=== PATIENT | male | born 1980 | race Two or more races ===

== ENCOUNTER 2024-06-12 20:52 | Observation (INO) | payer BC, OTHER ==
[2024-06-12 21:30] VITALS: BMI 22.0
[2024-06-12 22:10] LABS: BASO % 2.9 % (0-2.0); EOS % 4.3 % (0-4.5); HEMATOCRIT 46.6 % (35.4-49); HEMOGLOBIN 14.6 GM/dL (11.7-16.9); LYMPH % 47.3 % (8-40); MCH 26.5 pg (25.7-33.7); MCHC 31.3 g/dl (32.0-35.9); MEAN CELL VOLUME 84.5 fl (80-96); MEAN PLT VOLUME 7.9 fl (7.5-11.1); MONO % 11.8 % (3.8-10.2); NEUT % 33.7 % (42.8-82.8); PLATELET COUNT 179 10^3/uL (134-434); RBC 5.52 M/mm3 (4.00-5.60); RDW 14.6 % (11.9-15.9); WHITE BLOOD COUNT 4.4 K/mm3 (4.0-10.0)
[2024-06-12 22:25] LABS: POTASSIUM 4.1 mmol/L (3.5-5.1)
[2024-06-12 22:26] LABS: CALCIUM 8.9 mg/dL (8.5-10.1); INR 1.03 (0.83-1.09); PROTHROMBIN TIME (PATIENT) 11.8 SEC (9.7-13.0)
[2024-06-12 22:28] LABS: ACTIVATED PTT 31.5 SECONDS (25.2-36.5); BLOOD UREA NITROGEN 14.8 mg/dL (7-18)
[2024-06-12 22:30] LABS: CREATININE 0.7 mg/dL (0.55-1.3)
[2024-06-12 22:32] LABS: TOT PROT 6.4 g/dl (6.4-8.2)
[2024-06-12 22:33] LABS: BILIRUBIN,TOTAL 0.3 mg/dL (0.2-1)
[2024-06-13] MEDS: levETIRAcetam 500 MG TABLET (FP) PO ONE (05:56)
[2024-06-13 09:28] LABS: URINE APPEARANCE CLEAR; URINE BILIRUBIN NEGATIVE (NEGATIVE); URINE COLOR YELLOW; URINE GLUCOSE (UA) NEGATIVE (NEGATIVE); URINE KETONE NEGATIVE (NEGATIVE)
[2024-06-13 09:29] LABS: URINE LEUK ESTERASE NEGATIVE (NEGATIVE); URINE NITRITE NEGATIVE (NEGATIVE); URINE PROTEIN TRACE (NEGATIVE); URINE UROBILINOGEN 0.2 mg/dL (0.2-1.0)
[2024-06-13 09:31] LABS: EPI CELLS 12.2 /uL (0-25.1); HYALINE CASTS 0.59 /uL (0-3.1); URINE RBC 9.1 /uL (0-23.9); URINE WBC 82.2 /uL (0-25.8)
[2024-06-13 09:32] LABS: URINE BACTERIA 15.1 /uL (0-1359)
[2024-06-13 09:47] LABS: BASO % 0.4 % (0-2.0); EOS % 4.3 % (0-4.5); HEMATOCRIT 44.5 % (35.4-49); HEMOGLOBIN 14.9 GM/dL (11.7-16.9); LYMPH % 45.9 % (8-40); MCH 27.8 pg (25.7-33.7); MCHC 33.4 g/dl (32.0-35.9); MEAN CELL VOLUME 83.1 fl (80-96); MEAN PLT VOLUME 8.1 fl (7.5-11.1); MONO % 10.9 % (3.8-10.2); NEUT % 38.5 % (42.8-82.8); PLATELET COUNT 173 10^3/uL (134-434); RBC 5.35 M/mm3 (4.00-5.60); WHITE BLOOD COUNT 3.8 K/mm3 (4.0-10.0)
[2024-06-13 09:53] LABS: POTASSIUM 4.1 mmol/L (3.5-5.1)
[2024-06-13 10:09] LABS: ALBUMIN 3.1 g/dl (3.4-5.0); BLOOD UREA NITROGEN 12.6 mg/dL (7-18); CALCIUM 9.4 mg/dL (8.5-10.1); MAGNESIUM 1.9 mg/dL (1.8-2.4)
[2024-06-13 10:12] LABS: CREATININE 0.7 mg/dL (0.55-1.3)
[2024-06-13] MEDS: levETIRAcetam 500 MG TABLET (FP) PO SCH (10:12)
[2024-06-13 10:13] LABS: BILIRUBIN,TOTAL 0.5 mg/dL (0.2-1); PHOSPHOROUS 3.6 mg/dL (2.5-4.9)
[2024-06-13] MEDS: ENOXAPARIN NA (PORCINE) 40 MG/0.4 ML DISP.SYRIN SQ SCH (10:13)
[2024-06-13 10:14] LABS: TOT PROT 6.5 g/dl (6.4-8.2)
[2024-06-14 07:43] LABS: BASO % 0.6 % (0-2.0); EOS % 4.4 % (0-4.5); HEMATOCRIT 44.1 % (35.4-49); HEMOGLOBIN 14.1 GM/dL (11.7-16.9); MCH 27.1 pg (25.7-33.7); MCHC 31.9 g/dl (32.0-35.9); MEAN CELL VOLUME 84.8 fl (80-96); MONO % 11.8 % (3.8-10.2); NEUT % 38.2 % (42.8-82.8); PLATELET COUNT 155 10^3/uL (134-434); WHITE BLOOD COUNT 3.8 K/mm3 (4.0-10.0)
[2024-06-14 07:53] LABS: POTASSIUM 3.9 mmol/L (3.5-5.1)
[2024-06-14 07:54] LABS: CALCIUM 8.8 mg/dL (8.5-10.1)
[2024-06-14 07:55] LABS: ALBUMIN 2.9 g/dl (3.4-5.0); BLOOD UREA NITROGEN 15.4 mg/dL (7-18); MAGNESIUM 1.8 mg/dL (1.8-2.4)
[2024-06-14 07:58] LABS: CREATININE 0.8 mg/dL (0.55-1.3)
[2024-06-14 08:00] LABS: BILIRUBIN,TOTAL 0.4 mg/dL (0.2-1)
[2024-06-14 18:05] VITALS: RESP 18
[2024-06-15 06:39] VITALS: BP 95/62; PULSE 66; TEMP 98.4
[2024-06-15 07:05] LABS: POTASSIUM 4.2 mmol/L (3.5-5.1)
[2024-06-15 07:10] LABS: CALCIUM 8.5 mg/dL (8.5-10.1)
[2024-06-15 07:11] LABS: ALBUMIN 2.7 g/dl (3.4-5.0); BLOOD UREA NITROGEN 15.5 mg/dL (7-18); MAGNESIUM 1.6 mg/dL (1.8-2.4)
[2024-06-15 07:12] LABS: BASO % 0.6 % (0-2.0); EOS % 5.1 % (0-4.5); HEMATOCRIT 40.4 % (35.4-49); HEMOGLOBIN 13.7 GM/dL (11.7-16.9); LYMPH % 42.5 % (8-40); MCH 28.4 pg (25.7-33.7); MCHC 33.9 g/dl (32.0-35.9); MEAN CELL VOLUME 83.7 fl (80-96); MEAN PLT VOLUME 8.4 fl (7.5-11.1); MONO % 10.9 % (3.8-10.2); NEUT % 40.9 % (42.8-82.8); PLATELET COUNT 148 10^3/uL (134-434); RBC 4.83 M/mm3 (4.00-5.60); RDW 13.9 % (11.9-15.9)
[2024-06-15 07:13] LABS: CREATININE 0.7 mg/dL (0.55-1.3)
[2024-06-15 07:17] LABS: TOT PROT 5.8 g/dl (6.4-8.2)
[2024-06-15 07:18] LABS: BILIRUBIN,TOTAL 0.8 mg/dL (0.2-1)
[2024-06-15] MEDS ORDERED: MAGNESIUM SULFATE IN WATER 2 GM/50 ML IVPB IVPB ONE (09:00)
[2024-06-15] MEDS ORDERED: ENOXAPARIN NA (PORCINE) 40 MG/0.4 ML DISP.SYRIN SQ SCH (10:00)
== END 2024-06-15 09:22 ==
LOC: JER 20:52 → JERBED 06-13 00:24 → J7W 06-13 02:32 → J4W 06-13 17:10
PROVIDERS: ADMIT Internal Medicine; ATTEND Internal Medicine
PROC: 3E023GC Introduction of Other Therapeutic Substance into Muscle, Percutaneous Approach (ICD-10-PCS; principal; 2024-06-13)
DX: Z87.820 Personal history of traumatic brain injury (principal); G35 Multiple sclerosis; F41.8 Other specified anxiety disorders; G40.909 Epilepsy, unspecified, not intractable, without status epilepticus; G81.94 Hemiplegia, unspecified affecting left nondominant side; W18.39XA Other fall on same level, initial encounter; Y93.89 Activity, other specified; Y92.89 Other specified places as the place of occurrence of the external cause; R42 Dizziness and giddiness; R53.1 Weakness
CPT/HCPCS: 36415; 70450-TC; 70496-TC; 70498-TC; 80053; 80061; 81003; 82550; 83036; 83735; 84100; 84484; 85025; 85610; 85730; 86850; 86900; 86901; 93005; 93010; 96372; 97116-GP; 97162-GP; 99285-25; G0378